=== PATIENT | male | born 1985 | race African-American/Black ===

== ENCOUNTER 2016-11-24 11:32 | Emergency (ER) | payer SELFPAY ==
[2016-11-24 11:48] VITALS: BP 130/82
[2016-11-24] MEDS ORDERED: INHA1SPA94 MC (12:37)
[2016-11-24] MEDS ORDERED: DOXY100C2 PO (12:37)
[2016-11-24] MEDS ORDERED: PROAIR HFA8.5 GM INH (12:37)
[2016-11-24] MEDS ORDERED: PRED20TA PO (12:37)
[2016-11-24] MEDS ORDERED: BENZ100C PO (12:37)
--- NOTE | 2016-11-24 12:38 | PHYS DOC ---
Past Medical History Past Medical History: Bronchitis Past Surgical History: No Surgical History Alcohol Use: Occasionally Drug Use: None Adult General Chief Complaint Chief Complaint: COUGH HPI HPI Patient is a 31 year old male presents to the emergency department stating that he has had a one-week history of cough and congestion. He states that he's been coughing up some blood mucus. He denies any fever, chills. He states that he's been coughing mainly at night to where he cannot sleep. He states he strained his child's inhalers with a nebulizer machine as well as over-the- counter cough suppressants which seemed to have helped. Patient does state he has a history of smoking. He denies any nausea or vomiting. Review of Systems Review of Systems Constitutional: Denies fever or chills [] Eyes: Denies change in visual acuity, redness, or eye pain [] HENT: Denies nasal congestion or sore throat [] Respiratory: cough denies shortness of breath [] Cardiovascular: No additional information not addressed in HPI [] GI: Denies abdominal pain, nausea, vomiting, bloody stools or diarrhea [] : Denies dysuria or hematuria [] Musculoskeletal: Denies back pain or joint pain [] Integument: Denies rash or skin lesions [] Neurologic: Denies headache, focal weakness or sensory changes [] Endocrine: Denies polyuria or polydipsia [] Allergies Allergies Allergies Coded Allergies Type Severity Reaction Last Updated Verified No Known Drug Allergies 11/24/16 No Physical Exam Physical Exam Constitutional: Well developed, well nourished, no acute distress, non-toxic appearance. [] HENT: Normocephalic, atraumatic, bilateral external ears normal, oropharynx moist, no oral exudates, nose normal. Bilateral Tympanic membranes appear to be normal. Patient with no frontal or maxillary sinus tenderness noted. Patient does have postnasal drip noted in the back of the throat which is red with no exudate noted. Eyes: PERRLA, EOMI, conjunctiva normal, no discharge. [] Neck: Normal range of motion, no tenderness, supple, no stridor. [] Cardiovascular:Heart rate regular rhythm, no murmur [] Lungs & Thorax: Bilateral breath sounds clear to auscultation [] Skin: Warm, dry, no erythema, no rash. [] Extremities: No tenderness, no cyanosis, no clubbing, ROM intact, no edema. [] Neurologic: Alert and oriented X 3, normal motor function, normal sensory function, no focal deficits noted. [] Psychologic: Affect normal, judgement normal, mood normal. [] Current Patient Data Vital Signs Vital Signs Date Time Temp Pulse Resp B/P (MAP) Pulse Ox O2 Delivery O2 Flow Rate FiO2 11/24/16 11:48 98.3 86 18 100 Room Air 98.3 EKG EKG [] Radiology/Procedures Radiology/Procedures [] Course & Med Decision Making Course & Med Decision Making Pertinent Labs and Imaging studies reviewed. (See chart for details) Patient will be treated for sinusitis infection as breath sounds remained clear. Patient will be discharged home with a prescription for doxycycline, prednisone, and Tessalon Perles. Recommended that he continue to stop smoking. In which she states that he has not been able to smoke due to the coughing and congestion. Recommended plenty of fluids. Patient will be discharged home in stable condition with signs and symptoms to return back to the emergency department. He'll also be provided with an inhaler. Patient was provided with discharge instructions, treatment regimens and follow-up recommendations. Signs and symptoms to return back to emergency department as been provided. All questions and concerns been answered at patient's bedside. [] Dragon Disclaimer Dragon Disclaimer This electronic medical record was generated, in whole or in part, using a voice recognition dictation system. Departure Departure Impression: Primary Impression: Sinusitis Disposition: 01 HOME, SELF-CARE Condition: STABLE Referrals: NO PCP (PCP) Patient Instructions: Sinusitis, [id number], Smoking Cessation, Tips For Success Additional Instructions: Activity as tolerated. Medications as prescribed. Tylenol or ibuprofen for fever chills or generalized body aches and discomfort. Drink plenty of fluids. Continue to stop smoking. Follow-up to primary care physician in the next week. Return back to emergency prior signs symptoms of become worse. Scripts Inhaler, Assist Devices (Compact Space Chamber) 1 Each Spacer EACH MC, #1 Prov: DUDLEY CORBETT [employer] OPERATOR 11/24/16 Albuterol Sulfate (PROAIR HFA INHALER) 8.5 Gm Hfa.aer.ad 1 PUFF INH PRN Q6HRS Y for SHORTNESS OF BREATH, #1 INHALER 0 Refills Prov: DUDLEY OCRBETT APRN 11/24/16 Benzonatate (TESSALON PERLE) 100 Mg Capsule 1 CAP PO TID, #30 CAP Prov: DUDLEY CORBETT APRN 11/24/16 Prednisone (PREDNISONE) 20 Mg Tablet 40 MG PO DAILY for 7 Days, #14 TAB Prov: DUDLEY CORBETT APRN 11/24/16 Doxycycline Hyclate (DOXYCYCLINE HYCLATE) 100 Mg Capsule 1 CAP PO BID, #20 CAP Prov: DUDLEY CORBETT APRN 11/24/16 Problem Qualifiers Primary Impression: Sinusitis Sinusitis location: unspecified location Chronicity: unspecified Qualified Codes: J32.9 - Chronic sinusitis, unspecified DUDLEY CORBETT APRN Nov 24, 2016 12:38
[2016-11-24] MEDS ORDERED: BENZONATATE 100 MG CAPSULE. PO ONE (13:00)
== END 2016-11-24 12:52 | disposition home or self-care (01) ==
LOC: ER 11:32
DX: J32.9 Chronic sinusitis, unspecified (principal); Z87.891 Personal history of nicotine dependence; Z79.899 Other long term (current) drug therapy
CPT/HCPCS: 99283

== ENCOUNTER 2016-11-27 18:12 | Emergency (ER) | payer SELFPAY ==
[~2016-11-27] VITALS: Ht 182.9 cm; Wt 77.1 kg
[~2016-11-27 18:12] MED LIST: BENZ100C PO; DOXY100C2 PO; INHA1SPA94 MC; PRED20TA PO; PROAIR HFA8.5 GM INH
[2016-11-27 18:28] VITALS: BP 115/69
--- NOTE | 2016-11-27 18:44 | PHYS DOC ---
Past Medical History Past Medical History: Bronchitis Past Surgical History: No Surgical History Alcohol Use: Occasionally Drug Use: None Adult General Chief Complaint Chief Complaint: SEXUALLY TRANSMITTED DISEASE HPI HPI Patient is a 31 year old male who presents for STD check. Patient is in the ED with the significant other who is also being checked for STDs. They would like to be treated. Patient has no symptoms. Review of Systems Review of Systems Constitutional: Denies fever or chills [] GI: Denies abdominal pain, nausea, vomiting, bloody stools or diarrhea [] : STD check Musculoskeletal: Denies back pain or joint pain [] Integument: Denies rash or skin lesions [] Neurologic: Denies headache, focal weakness or sensory changes [] Current Medications Current Medications Current Medications Medications (Trade) Dose Ordered Sig/Jaqueline Start Time Stop Time Status Last Admin Dose Admin Azithromycin (Zithromax) 1,000 mg 1X ONCE 11/27/16 18:45 11/27/16 18:46 Ceftriaxone Sodium (Rocephin Im) 250 mg 1X ONCE 11/27/16 18:45 11/27/16 18:46 Metronidazole (Flagyl) 2,000 mg 1X ONCE 11/27/16 18:45 11/27/16 18:46 Allergies Allergies Allergies Coded Allergies Type Severity Reaction Last Updated Verified No Known Drug Allergies 11/24/16 No Physical Exam Physical Exam Constitutional: Well developed, well nourished, no acute distress, non-toxic appearance. [] Abdomen: Bowel sounds normal, soft, no tenderness, no masses, no pulsatile masses. [] Skin: Warm, dry, no erythema, no rash. [] Back: No tenderness, no CVA tenderness. [] Extremities: No tenderness, no cyanosis, no clubbing, ROM intact, no edema. [] Neurologic: Alert and oriented X 3, normal motor function, normal sensory function, no focal deficits noted. [] Psychologic: Affect normal, judgement normal, mood normal. [] Current Patient Data Vital Signs Vital Signs Date Time Temp Pulse Resp B/P (MAP) Pulse Ox O2 Delivery O2 Flow Rate FiO2 11/27/16 18:28 98.4 83 16 96 Room Air 98.4 EKG EKG [] Radiology/Procedures Radiology/Procedures [] Course & Med Decision Making Course & Med Decision Making Pertinent Labs and Imaging studies reviewed. (See chart for details) Patient is in the ED for STD concerns. He was tested and treated. Educated on STDs especially the need to use protection at all times. Follow-up with the health department for further STD concerns. Troy Disclaimer Troy Disclaimer This electronic medical record was generated, in whole or in part, using a voice recognition dictation system. Departure Departure Impression: Primary Impression: Concern about STD in male without diagnosis Disposition: 01 HOME, SELF-CARE Condition: STABLE Referrals: NO PCP (PCP) health department for further STD concerns Patient Instructions: Sexually Transmitted Disease, [id number] Additional Instructions: You were seen with STD concerns. You were treated in the emergency room. You cannot have sex for 7 days. You must contact all your sex partners, let them know you were treated for STDs and ask them to seek treatment too. Use protection at all times. SANFORD SARKAR APRN Nov 27, 2016 18:44
[2016-11-27] MEDS ORDERED: metroNIDAZOLE 500 MG TABLET PO ONE (18:45)
[2016-11-27] MEDS ORDERED: AZITHROMYCIN 250 MG TABLET. PO ONE (18:45)
[2016-11-27] MEDS ORDERED: cefTRIAXone IM 250 MG VIAL IM ONE (18:45)
[2016-11-27 19:09] LABS: BILIRUBIN,URINE NEGATIVE (NEG); GLUCOSE,URINE NEGATIVE (NEG); NITRITE,URINE NEGATIVE (NEG); PROTEIN,URINE NEGATIVE (NEG-TRACE); UROBILINOGEN,URINE 0.2 mg/dL (0.2 mg/dL)
[2016-11-27 19:17] LABS: BACTERIA,URINE 0 /HPF (0-FEW); RBC,URINE 0 /HPF (0-2); WBC,URINE 0 /HPF (0-4)
== END 2016-11-27 19:20 | disposition home or self-care (01) ==
LOC: ER 18:12
DX: Z11.3 Encounter for screening for infections with a predominantly sexual mode of transmission (principal)
CPT/HCPCS: 81001; 87491; 87591; 96372; 99284; J0696; Q0144